=== PATIENT | male | born 1965 | race Caucasian/White ===

== ENCOUNTER 2016-10-16 19:33 | Emergency (ER) | payer OTHER ==
[2016-10-16 19:51] VITALS: BP 114/75; PULSE 80; TEMP 97.9; BMI 27.4
[2016-10-16] MEDS ORDERED: KETOROLAC TROMETHAMINE 30 MG/1 ML VIAL IVPUSH ONE (20:33)
[2016-10-16] MEDS ORDERED: KETOROLAC TROMETHAMINE 15 MG/ML VIAL IM ONE (20:36)
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
[2016-10-16] MEDS ORDERED: METHOCARBAMOL 500 MG TABLET PO ONE (20:40)
[2016-10-16] MEDS ORDERED: KETOROLAC TROMETHAMINE 15 MG/ML VIAL ONE (20:42)
[2016-10-16] MEDS ORDERED: KETOROLAC TROMETHAMINE 30 MG/1 ML VIAL ONE (20:47)
[2016-10-16] MEDS ORDERED: METHOCARBAMOL 500 MG TABLET ONE (20:51)
[2016-10-16] MEDS ORDERED: KETOROLAC TROMETHAMINE 30 MG/1 ML VIAL IM ONE (20:59)
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
== END 2016-10-16 22:28 | disposition home or self-care (01) ==
LOC: JERFT 19:33
PROC: 3E0233Z Introduction of Anti-inflammatory into Muscle, Percutaneous Approach (ICD-10-PCS; principal; 2016-10-16)
DX: M62.830 Muscle spasm of back (principal); V43.52XA Car driver injured in collision with other type car in traffic accident, initial encounter; Y93.89 Activity, other specified; Y92.410 Unspecified street and highway as the place of occurrence of the external cause; F17.210 Nicotine dependence, cigarettes, uncomplicated
CPT/HCPCS: 72070-TC; 72100-TC; 73070-TC-RT; 73090-TC-RT; 73110-TC-RT; 99282-25